=== PATIENT | male | born 1940 | race Caucasian/White ===

== ENCOUNTER 2016-09-27 23:58 | Emergency (ER) | payer MEDICARE, OTHER ==
[2016-09-27 20:12] LABS: BASOPHILS 0.9 %; BASOPHILS ABSOLUTE 0.05 10/3/uL (0.0-0.16); EOSINOPHILS 2.1 %; EOSINOPHILS ABSOLUTE 0.12 10/3/uL (0.0-0.53); ER CBC TAT 0 Hrs 03 Mins; HEMATOCRIT 37.3 % (40.0-51.0); HEMOGLOBIN 13.1 g/dL (13.6-17.8); IMMATURE GRANULOCYTES 0.2 %; IMMATURE GRANULOCYTES ABSOLUTE 0.01 10/3/uL (0.0-0.11); LYMPHOCYTES ABSOLUTE 1.22 10/3/uL (0.67-4.30); MANUAL DIFF NO %; MEAN CORPUS HGB CONC 35.1 g/dL (32.0-36.0); MEAN CORPUSCULAR HEMOGLOB 35.2 pg (26.0-34.0); MEAN CORPUSCULAR VOLUME 100.3 fL (80-100); MEAN PLATELET VOLUME 10.6 fL (9.2-13.0); MONOCYTES 10.3 %; NEUTROPHILS 65.5 %; PLATELET COUNT 180 10/3/uL (150-400); RBC DISTRIBUTION WIDTH 16.1 % (12.0-16.0); RED CELL COUNT 3.72 10/6/uL (4.7-6.1); WHITE BLOOD CELLS 5.8 10/3/uL (4.5-10.5)
[2016-09-27 20:21] LABS: INTERNATIONAL NORMAL RATI 1.3 UNITS (-)
[2016-09-27 20:22] LABS: PARTIAL THROMBO TIME 34.3 SEC (22.5-37.2)
[2016-09-27 20:30] LABS: BUN (BLOOD UREA NITROGEN) 10 MG/DL (6-23); CHEST PAIN PROFILE TAT 0 Hrs 21 Mins; CHLORIDE, SERUM 102 MMOL/L (96-112); CO2 (CARBON DIOXIDE) 28 MMOL/L (24-34); CREATININE 0.74 MG/DL (0.70-1.30); GFR AFRICAN AMERICAN 105 ML/MIN (>=60); GFR NON AFRICAN AMERICAN 91 ML/MIN (>=60); POTASSIUM, SERUM 3.9 MMOL/L (3.5-5.3); SODIUM, SERUM 138 MMOL/L (135-148); TROPONIN I <0.02 NG/ML (<0.05)
[2016-09-27 20:34] LABS: GLUCOSE, SERUM 90 MG/DL (60-99)
[~2016-09-27 23:58] MED LIST: ACT300 PO; ALTA2.5 PO; ALTA5 PO; ASA5GR PO; ASACOL PO; CALTRA600D PO; DURICEFSUS PO; IMOD PO; LOP25 PO; MOBIC7.5 PO; PLAVIX PO; PRAVACHOL40 MG PO; VITAMIN D31000 UNIT PO
== END 2016-09-28 00:20 | disposition home or self-care (01) ==
LOC: ER 23:58
PROVIDERS: Emergency Medicine
DX: K74.60 Unspecified cirrhosis of liver (principal); I10 Essential (primary) hypertension; Z87.891 Personal history of nicotine dependence; Z95.5 Presence of coronary angioplasty implant and graft; Z88.5 Allergy status to narcotic agent; Z79.82 Long term (current) use of aspirin; Z79.899 Other long term (current) drug therapy; R60.0 Localized edema
CPT/HCPCS: 71020; 80048; 83735; 83880; 84484; 85025; 85610; 85730; 93005; 99284; A9270-GY

== ENCOUNTER 2016-12-06 13:05 | Inpatient (IN) | payer MEDICARE, OTHER ==
[2016-12-04 18:45] LABS: BUN (BLOOD UREA NITROGEN) 18 MG/DL (6-23); CHLORIDE, SERUM 88 MMOL/L (96-112); CO2 (CARBON DIOXIDE) 29 MMOL/L (24-34); CREATININE 1.17 MG/DL (0.70-1.30); GFR AFRICAN AMERICAN 71 ML/MIN (>=60); GFR NON AFRICAN AMERICAN 61 ML/MIN (>=60); GLUCOSE, SERUM 93 MG/DL (60-99); POTASSIUM, SERUM 3.1 MMOL/L (3.5-5.3); SODIUM, SERUM 127 MMOL/L (135-148)
[2016-12-04 18:46] LABS: A/G RATIO 0.3 (0.7-1.9); ALBUMIN 1.6 G/DL (3.5-5.0); ALKALINE PHOSPHATASE 284 U/L (45-117); CALCIUM, SERUM 7.8 MG/DL (8.5-10.4); CHOL/HDL RATIO(NOT ORDER) 9.5 (0-5); CHOLESTEROL 219 MG/DL (< 200); GLOBULIN 5.3 G/DL (2.5-4.1); HDL CHOLESTEROL 23 MG/DL (> 39); LDL CHOLESTEROL 174 MG/DL (< 130); NON-HDL CHOLESTEROL 196 MG/DL (< 160); TOTAL BILIRUBIN 3.5 MG/DL (0-1.2); TOTAL PROTEIN 6.9 G/DL (6.0-8.5); TRIGLYCERIDE 114 MG/DL (< 150)
[2016-12-04 18:47] LABS: SGOT(AST) 103 U/L (5-40); SGPT(ALT) 56 U/L (5-65)
--- NOTE | ~2016-12-06 | HP ---
History And Physical [facility] [address] [place]. 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 He was put on HCC surveillance. In 08/2016, he noted some weight gain, mild confusion. He was started on Lasix and Aldactone. His bili had gone up to 4.6. His albumin was 1.8. Alkaline phosphatase was 492. He has been followed at [facility]. His Lasix and Aldactone were increased. He was seen at [facility] on 10/31/2016. At that time, his liver had some better compensation. He was on Aldactone 100 mg daily and Lasix 40 mg. He does have a history of small varices. Recent labs showed his BMP was acceptable with a creatinine of 0.63. For the last week or so, he has noted increased weight gain of about 30 pounds, some confusion, and some orthostatic dizziness. No black tarry stools. He is having one stool a day. PAST MEDICAL HISTORY: Crohn disease, doing well; GERD; coronary artery disease and stents. MEDICATIONS: Include cyproheptadine, ursodiol, loperamide, Plavix, ramipril, carvedilol, rifampin, Apriso, Neurontin, and Tums. SOCIAL HISTORY: He lives with his . REVIEW OF SYSTEMS: Otherwise negative. PHYSICAL EXAMINATION: VITAL SIGNS: Blood pressure 105/65, pulse was 86. GENERAL: Somewhat jaundiced. He is oriented. HEENT: Mild scleral icterus. Mouth and throat negative. NECK: No adenopathy. Trachea midline. CHEST: Clear to auscultation and percussion. CARDIAC: Normal. ABDOMEN: Probably some hnki-[id number] ascites. EXTREMITIES: He has 3 to 4+ pedal edema up to his upper thighs. He does have some mild asterixis. IMPRESSION: 1. 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 He has ascites. He has a history of grade 1 varices. 2. Crohn disease, stable. 3. History of coronary artery disease and stents, on Plavix. 4. Lower extremity edema. 5. Hypertension. PLAN: History And Physical [address] [address] NAME: MICHELLE CHAUHAN : 44 STATUS : ADM IN [facility]#: [id number] AGE: 76 ADM/REG DATE : 12/06/16 MR#: [id number] REPORT SERV DATE: 12/07/16 DICTATED BY: SCAR CASTELLON DATE: 12/06/16 REPORT STATUS : Draft TRANSCRIBED BY: MODL DATE: 12/06/16 1. Admit for IV albumin and Lasix. 2. We will have to hold on paracentesis because he is on the Plavix. 3. Control of encephalopathy. 4. Cardiology consult. 5. We will hold on his blood pressure medicine and I think he is getting somewhat on the hypotensive side related to his diuretics. We will consult Dr. Ray. MG/MODL Scar Castellon M.D. / [id number] CC: Crystal Holt M.D.
--- NOTE | ~2016-12-06 | CN ---
Consultation Report [facility] [address] [place]. [address] NAME: MICHELLE CLAROS : 44 STATUS : ADM IN PAT#: [id number] AGE: 76 ADM/REG DATE : 12/06/16 MR#: [id number] REPORT SERV DATE: 12/07/16 DICTATED BY: DATE: REPORT STATUS : Draft TRANSCRIBED BY: MODL DATE: 12/07/16 CONSULTATION DATE OF CONSULTATION: 12/07/2016 CONSULTATION REASON: Medical management. CHIEF COMPLAINT: Weight gain and some confusion. HISTORY OF PRESENT ILLNESS: The patient has a primary sclerosing cholangitis, decompensation, secondary cirrhosis. He has noted a 30 pounds weight gain in the last week. He has had some mild confusion. Currently, he is alert and oriented x4, however, he could not remember if had children or not, and he has four of them according to his . Mr. Claros has been on the liver transplant list at [facility] in [facility]. He is seen by Dr. Ivory Locke. His last appointment was on 10/31/2016. Yesterday, the patient was admitted under the care of Dr. Magdiel Pérez and he was placed on Lasix IV, as well as albumin, due to the presence of ascites. He does have a history of coronary artery disease with stent placement and he is currently taking Plavix. His retail account executive is Dr. Ray. He was consulted as well. If Dr. Ray agrees, we will hold the patient's Plavix for five days, so that he can have a paracentesis. PAST MEDICAL HISTORY: Crohn's disease, gastroesophageal reflux disease, coronary artery disease, primary sclerosing cholangitis, hyperlipidemia, lower GI bleed, diverticulosis, histoplasmosis of the lung, and osteoarthritis. PAST SURGICAL HISTORY: Left upper pneumonectomy performed by Dr. Frantz Ferrara, tonsillectomy, and adenoidectomy. SOCIAL HISTORY: The patient has remote history of tobacco use. He quit 25 years ago. Denies alcohol and illicit drug use. The patient is a retired banuelos and is and lives at home with his . FAMILY HISTORY: His mother had gastric cancer. His father had coronary artery disease and an OK. His brother has coronary artery disease. REVIEW OF SYSTEMS: A 10-point review of systems was performed and all pertinent positives were noted above otherwise negative. ALLERGIES: CODEINE. MEDICATIONS: Carvedilol, cyproheptadine, famotidine, gabapentin, mesalamine, Protonix, rifampin, Rifaximin, sucralfate, and ursodiol. Consultation Report [facility] [address] [place]. [address] NAME: MICHELLE CLAROS : 44 STATUS : ADM IN PAT#: [id number] AGE: 76 ADM/REG DATE : 12/06/16 MR#: [id number] REPORT SERV DATE: 12/07/16 DICTATED BY: DATE: REPORT STATUS : Draft TRANSCRIBED BY: MODL DATE: 12/07/16 PHYSICAL EXAMINATION: VITAL SIGNS: Blood pressure 132/61, heart rate 86, respirations 16, with an O2 saturation of 95% on room air, and temperature is 97.7. GENERAL: The patient is a pleasant gentleman, who is jaundiced with some scleral icterus. His responses are appropriate. HEENT: Scleral icterus. NECK: Thyroid within the limits. The trachea is midline. No adenopathy is noted. CHEST: Lungs are clear. Respirations are nonlabored. CARDIOVASCULAR: S1 and S2 is present. No murmurs, rubs, or gallops noted. ABDOMEN: Distended. Bowel sounds decreased. Ascites is noted. EXTREMITIES: He does have 2+ nonpitting edema in his lower extremities. ASSESSMENT: 1. Primary sclerosing cholangitis. 2. Cirrhosis, due to #1. 3. Crohn's disease. 4. Coronary artery disease, status post stent placement. 5. Lower extremity edema. 6. Hypertension. 7. Hyponatremia. 8. Hypokalemia. PLAN: The patient's blood pressure has been somewhat on the low side, due to diuresis, we will hold his home antihypertensives Altace. We will monitor the patient's electrolytes and replete accordingly. Thank you for the consultation. We will follow along with the patient and be of assistance in any way we can. NELY/MODL ado Keys NP / [id number] CC: Dion Lopez M.D. Sandhya Washington M.D. Shawn Ragsdale MD
--- NOTE | ~2016-12-06 | CN ---
Consultation Report [facility] [address] [place]. [address] NAME: MICHELLE CHAUHAN : 44 STATUS : [facility]#: [id number] AGE: 76 ADM/REG DATE : 12/06/16 MR#: [id number] REPORT SERV DATE: 12/07/16 DICTATED BY: LYLE RAY DATE: 12/07/16 REPORT STATUS : Draft TRANSCRIBED BY: MODL DATE: 12/07/16 DATE OF CONSULTATION: HISTORY OF PRESENT ILLNESS: The patient is a 76-year-old white male, who is status post remote stenting of the left anterior descending coronary artery and left circumflex coronary artery. He had a cardiac catheterization done on 04/29/2012 that showed patent stents in the proximal to mid LAD and proximal to mid obtuse marginal branch. Left ventricular ejection fraction was 60%. The patient also has a history of mild mitral regurgitation. He is admitted with cirrhosis of the liver and ascites. He is being considered for paracentesis. The patient has not been having any chest pain or significant dyspnea. His main complaint has been of increasing abdominal girth and pedal edema. The patient has been on carvedilol 12.5 mg a day, Plavix 75 mg a day, ramipril 12.5 mg a day, spironolactone 25 mg a day, and Protonix 40 mg a day. PAST MEDICAL HISTORY: Remarkable for coronary artery disease with previous multivessel stenting, hypertension, hyperlipidemia, and cirrhosis of the liver. SOCIAL HISTORY: The patient does not currently smoke. FAMILY HISTORY: Positive for coronary disease. REVIEW OF SYSTEMS: The patient denies cough, wheeze, sputum production, vomiting, diarrhea, or dysuria. PHYSICAL EXAMINATION: VITAL SIGNS: Blood pressure 115/69, heart rate 84 and regular, respirations 16 nonlabored. HEENT: Unremarkable. NECK: Shows no jugular venous distention with good carotid upstroke. CHEST: Clear. CARDIOVASCULAR: PMI is not displaced. S1 is normal. S2 is narrowly split. No gallop is present. ABDOMEN: Shows tense ascites. EXTREMITIES: Show 2+ ankle edema. SKIN: Warm and dry with no pallor or icterus. NEURO/PSYCH: The patient is oriented x3 with appropriate affect. LABORATORY DATA: Hematocrit 29.8, BUN 11, creatinine 0.63, potassium 3.6. IMPRESSION: 1. Stable coronary artery disease status post remote stenting of the left anterior descending coronary artery and left circumflex coronary artery. 2. Essential hypertension. 3. Hyperlipidemia. 4. Cirrhosis of the liver. Consultation Report [facility] [address] [place]. [address] NAME: MICHELLE CHAUHAN : 44 STATUS : ADM IN PAT#: [id number] AGE: 76 ADM/REG DATE : 12/06/16 MR#: [id number] REPORT SERV DATE: 12/07/16 DICTATED BY: LYLE RAY DATE: 12/07/16 REPORT STATUS : Draft TRANSCRIBED BY: CHANCE DATE: 12/07/16 RECOMMENDATION: 1. Okay to discontinue Plavix for paracentesis. 2. We will continue other cardiac medicines at the present doses. 3. We will be glad to see again on a p.r.n. basis. Thank you very much for this consultation. URI/CHANCE Lyle Ray M.D., F.A.C.C. / [id number] CC: Crystal Holt M.D.
--- NOTE | ~2016-12-06 | DS ---
Discharge Summary [facility] [address] [facility] [place]. [address] NAME: MICHELLE CHAUHAN : 44 STATUS : DIS IN PAT#: [id number] AGE: 76 ADM/REG DATE : 12/06/16 MR#: [id number] REPORT SERV DATE: 12/13/16 DICTATED BY: DION CASTELLON DATE: 12/11/16 REPORT STATUS : Draft TRANSCRIBED BY: MODL DATE: 12/11/16 ADMISSION DATE: 12/06/2016 DISCHARGE DATE: INTERIM DISCHARGE SUMMARY DIAGNOSES: 1. 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 2. Crohn's disease. Stable. 3. History of coronary artery disease and stents, on Plavix, stable. CASE HISTORY: This patient has a history of cirrhosis secondary to PSC. He is on HCC surveillance. He has been also followed at [facility]. In August 2016, he noted some weight gain and confusion. He was started on Aldactone and Lasix. He has had a low albumin of 1.8. His Lasix and Aldactone were increased. He was last seen in [place] on 10/31/2016. He was treated with 100 mg of Aldactone a day and 40 mg of Lasix. History of small varices. Prior to admission, he noted some weight gain of about 30 pounds. Also some confusion. On exam, he has mild scleral icterus. Oriented. Abdomen showed a moderate amount of ascites, 3 to 4+ pedal edema up to his thighs. He does have a significant history of a left pneumonectomy, tonsillectomy, and adenoidectomy. He is not smoking. HOSPITAL COURSE AND ASSESSMENT: When the patient was admitted, he was on Altace. He has felt that had been affecting his renal blood flow and dropping his blood pressure. He was treated with SPA followed by Lasix. He has had significant diuresis of his lower extremity edema. Because of his Plavix use, we had to wait 4 to 5 days for his paracentesis. Scheduled for 12/11/2016. His alkaline phosphatase has dropped to 155. His bilirubin has gone from 3.5 to 5.2. His other liver enzymes are dry. His blood pressure has been in the 120 to 65 range. The patient was followed by the hospitalist service also. With the albumin and Lasix, his BUN and creatinine have remained stable. His ammonia level has been normal even though, he had some periods of confusion, which seemed to improve during the hospital stay. His INR went from 1.3 to 1.7. He is getting vitamin K. Last ammonia was 23. His medications at this point, include the Actigall 600 mg twice a day, Aldactone 50 mg daily, the Carafate 4 times a day, Coreg 6.25, Delzicol 400 mg 4 times a day, lactulose 30 mL 3 times a day, Lasix 60 mg b.i.d., Neurontin 100 mg at bedtime, Pepcid 40 mg a day, Periactin 4 mg 3 times daily, Protonix, rifampin for itching 300 mg daily, and Xifaxan 550 mg t.i.d. Paracentesis is pending at time of this summary. FINAL DISCHARGE DIAGNOSES #. 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 #. Hypertension, stable. #. History of coronary artery stents, Plavix. Discharge Summary [address] [address] NAME: MICHELLE CHAUHAN : 44 STATUS : DIS IN PAT#: [id number] AGE: 76 ADM/REG DATE : 12/06/16 MR#: [id number] REPORT SERV DATE: 12/13/16 DICTATED BY: DION CASTELLON DATE: 12/11/16 REPORT STATUS : Draft TRANSCRIBED BY: CHANCE DATE: 12/11/16 #. Crohn disease, stable. INTERIM SUMMARY: This in an addition to the previous note, dated 12/11/2016. The patient received vitamin K 5 mg IV. The INR is still 1.7. He is getting paracentesis on the morning of discharge. His peripheral edema and ascites have markedly diminished. His bilirubin did go up to 5.2. He may be vitamin K deficient related to his primary sclerosing cholangitis with decrease fat soluble vitamin absorption. He is also on intestinal decontamination with Xifaxan. DISCHARGE MEDICATIONS: Carvedilol 6.25 mg daily, Periactin 4 mg t.i.d., furosemide 40 mg twice a day, lactulose 30 mL daily, mesalamine 800 mg b.i.d., nortriptyline 10 mg h.s., Protonix 40 mg daily, Xifaxan 550 t.i.d., rifampin 300 mg daily, spironolactone 150 mg daily, Carafate 1 g four times a day, Actigall 600 mg twice a day. </PLAN/> The patient will have lab work in a week. Discussion will be made with [facility] about whether he is considered a transplant eligible because of his age of 76 and some other comorbid conditions. DICTATED BY: Crystal Holt/CHANCE Dion Castellon M.D. / [id number] CC: Crystal Holt M.D.
[2016-12-06 14:59] LABS: BASOPHILS 0.5 %; BASOPHILS ABSOLUTE 0.03 10/3/uL (0.0-0.16); EOSINOPHILS 1.6 %; HEMATOCRIT 29.8 % (40.0-51.0); HEMOGLOBIN 10.5 g/dL (13.6-17.8); IMMATURE GRANULOCYTES 0.2 %; IMMATURE GRANULOCYTES ABSOLUTE 0.01 10/3/uL (0.0-0.11); LYMPHOCYTES 22.6 %; MANUAL DIFF NO %; MEAN CORPUS HGB CONC 35.2 g/dL (32.0-36.0); MEAN CORPUSCULAR HEMOGLOB 33.9 pg (26.0-34.0); MEAN CORPUSCULAR VOLUME 96.1 fL (80-100); MEAN PLATELET VOLUME 9.7 fL (9.2-13.0); MONOCYTES ABSOLUTE 0.62 10/3/uL (0.21-1.20); NEUTROPHILS 65.1 %; NEUTROPHILS ABSOLUTE 4.04 10/3/uL (2.02-8.40); PLATELET COUNT 172 10/3/uL (150-400); RBC DISTRIBUTION WIDTH 14.6 % (12.0-16.0); WHITE BLOOD CELLS 6.2 10/3/uL (4.5-10.5)
[2016-12-06 15:07] LABS: INTERNATIONAL NORMAL RATI 1.3 UNITS (-); PROTIME (NOT ORD) 16.4 SEC (12.0-14.5)
[2016-12-06 15:16] LABS: A/G RATIO 0.3 (0.7-1.9); ALBUMIN 1.3 G/DL (3.5-5.0); CALCIUM, SERUM 7.9 MG/DL (8.5-10.4); CHLORIDE, SERUM 90 MMOL/L (96-112); CO2 (CARBON DIOXIDE) 29 MMOL/L (24-34); CREATININE 1.46 MG/DL (0.70-1.30); GFR AFRICAN AMERICAN 54 ML/MIN (>=60); GFR NON AFRICAN AMERICAN 47 ML/MIN (>=60); GLOBULIN 4.7 G/DL (2.5-4.1); SGOT(AST) 87 U/L (5-40); SGPT(ALT) 41 U/L (5-65); SODIUM, SERUM 127 MMOL/L (135-148)
[2016-12-06 15:17] LABS: ALKALINE PHOSPHATASE 258 U/L (45-117); BUN (BLOOD UREA NITROGEN) 29 MG/DL (6-23); GLUCOSE, SERUM 121 MG/DL (60-99); POTASSIUM, SERUM 3.9 MMOL/L (3.5-5.3); TOTAL BILIRUBIN 2.9 MG/DL (0-1.2)
[2016-12-06] MEDS ORDERED: ALTA2.5 PO (17:18)
[2016-12-06] MEDS ORDERED: SUCR PO (17:18)
[2016-12-06] MEDS ORDERED: PLAVIX PO (17:19)
[2016-12-06] MEDS ORDERED: COREG3 PO (17:19)
[2016-12-06] MEDS ORDERED: APRISO0.375 GM PO (17:20)
[2016-12-06] MEDS ORDERED: CYPROHEPTAD4 MG PO (17:21)
[2016-12-06] MEDS ORDERED: PEPCID40 MG PO (17:22)
[2016-12-06] MEDS ORDERED: RIFADIN 300 MG300 MG PO (17:22)
[2016-12-06] MEDS ORDERED: XIFAXAN550 MG PO (17:23)
[2016-12-06] MEDS ORDERED: URSO FORTE500 MG PO (17:24)
[2016-12-06] MEDS ORDERED: NEUR100 PO (17:24)
[2016-12-06] MEDS ORDERED: SPIR100 PO (17:24)
[2016-12-06] MEDS ORDERED: L40 PO (17:25)
[2016-12-06] MEDS ORDERED: CO Q-10100 MG PO (17:26)
[2016-12-06] MEDS ORDERED: VITAMIN B PO (17:26)
[2016-12-06] MEDS ORDERED: VITE PO (17:26)
[2016-12-06] MEDS ORDERED: [UNRECOGNIZED DRUG - OTHER] TOP (17:28)
[2016-12-07 09:13] LABS: BASOPHILS 0.4 %; BASOPHILS ABSOLUTE 0.02 10/3/uL (0.0-0.16); EOSINOPHILS 1.1 %; EOSINOPHILS ABSOLUTE 0.05 10/3/uL (0.0-0.53); HEMATOCRIT 30.4 % (40.0-51.0); HEMOGLOBIN 10.7 g/dL (13.6-17.8); IMMATURE GRANULOCYTES 0.2 %; IMMATURE GRANULOCYTES ABSOLUTE 0.01 10/3/uL (0.0-0.11); LYMPHOCYTES 19.9 %; LYMPHOCYTES ABSOLUTE 0.94 10/3/uL (0.67-4.30); MEAN CORPUS HGB CONC 35.2 g/dL (32.0-36.0); MEAN CORPUSCULAR HEMOGLOB 33.9 pg (26.0-34.0); MEAN CORPUSCULAR VOLUME 96.2 fL (80-100); MEAN PLATELET VOLUME 10.1 fL (9.2-13.0); MONOCYTES 9.7 %; MONOCYTES ABSOLUTE 0.46 10/3/uL (0.21-1.20); NEUTROPHILS 68.7 %; NEUTROPHILS ABSOLUTE 3.24 10/3/uL (2.02-8.40); PLATELET COUNT 135 10/3/uL (150-400); RBC DISTRIBUTION WIDTH 14.6 % (12.0-16.0); RED CELL COUNT 3.16 10/6/uL (4.7-6.1); WHITE BLOOD CELLS 4.7 10/3/uL (4.5-10.5)
[2016-12-07 09:14] LABS: MANUAL DIFF NO %
[2016-12-07 09:44] LABS: A/G RATIO 0.4 (0.7-1.9); ALBUMIN 1.7 G/DL (3.5-5.0); ALKALINE PHOSPHATASE 232 U/L (45-117); BUN (BLOOD UREA NITROGEN) 28 MG/DL (6-23); CALCIUM, SERUM 7.7 MG/DL (8.5-10.4); CHLORIDE, SERUM 91 MMOL/L (96-112); CO2 (CARBON DIOXIDE) 25 MMOL/L (24-34); CREATININE 1.11 MG/DL (0.70-1.30); GFR AFRICAN AMERICAN 75 ML/MIN (>=60); GFR NON AFRICAN AMERICAN 65 ML/MIN (>=60); GLOBULIN 4.7 G/DL (2.5-4.1); GLUCOSE, SERUM 89 MG/DL (60-99); POTASSIUM, SERUM 3.3 MMOL/L (3.5-5.3); SGOT(AST) 91 U/L (5-40); SGPT(ALT) 44 U/L (5-65); SODIUM, SERUM 125 MMOL/L (135-148); TOTAL PROTEIN 6.4 G/DL (6.0-8.5)
[2016-12-08 06:34] LABS: BASOPHILS 0.6 %; BASOPHILS ABSOLUTE 0.03 10/3/uL (0.0-0.16); EOSINOPHILS 2.9 %; EOSINOPHILS ABSOLUTE 0.14 10/3/uL (0.0-0.53); HEMATOCRIT 27.8 % (40.0-51.0); IMMATURE GRANULOCYTES 0.4 %; IMMATURE GRANULOCYTES ABSOLUTE 0.02 10/3/uL (0.0-0.11); LYMPHOCYTES 23.4 %; LYMPHOCYTES ABSOLUTE 1.15 10/3/uL (0.67-4.30); MEAN CORPUSCULAR HEMOGLOB 34.4 pg (26.0-34.0); MEAN CORPUSCULAR VOLUME 95.5 fL (80-100); MEAN PLATELET VOLUME 9.9 fL (9.2-13.0); MONOCYTES 13.8 %; MONOCYTES ABSOLUTE 0.68 10/3/uL (0.21-1.20); NEUTROPHILS 58.9 %; NEUTROPHILS ABSOLUTE 2.89 10/3/uL (2.02-8.40); PLATELET COUNT 159 10/3/uL (150-400); RBC DISTRIBUTION WIDTH 14.6 % (12.0-16.0); RED CELL COUNT 2.91 10/6/uL (4.7-6.1); WHITE BLOOD CELLS 4.9 10/3/uL (4.5-10.5)
[2016-12-08 06:38] LABS: MANUAL DIFF NO %
[2016-12-08 06:56] LABS: A/G RATIO 0.5 (0.7-1.9); ALBUMIN 1.8 G/DL (3.5-5.0); ALKALINE PHOSPHATASE 180 U/L (45-117); BUN (BLOOD UREA NITROGEN) 26 MG/DL (6-23); CALCIUM, SERUM 7.6 MG/DL (8.5-10.4); CHLORIDE, SERUM 92 MMOL/L (96-112); CO2 (CARBON DIOXIDE) 27 MMOL/L (24-34); CREATININE 1.06 MG/DL (0.70-1.30); GFR AFRICAN AMERICAN 80 ML/MIN (>=60); GFR NON AFRICAN AMERICAN 69 ML/MIN (>=60); GLOBULIN 3.8 G/DL (2.5-4.1); GLUCOSE, SERUM 86 MG/DL (60-99); POTASSIUM, SERUM 3.8 MMOL/L (3.5-5.3); SGOT(AST) 70 U/L (5-40); SGPT(ALT) 33 U/L (5-65); SODIUM, SERUM 128 MMOL/L (135-148); TOTAL BILIRUBIN 3.5 MG/DL (0-1.2); TOTAL PROTEIN 5.6 G/DL (6.0-8.5)
[2016-12-09 07:58] LABS: BASOPHILS 0.6 %; BASOPHILS ABSOLUTE 0.03 10/3/uL (0.0-0.16); EOSINOPHILS 1.3 %; EOSINOPHILS ABSOLUTE 0.06 10/3/uL (0.0-0.53); HEMATOCRIT 27.6 % (40.0-51.0); HEMOGLOBIN 9.8 g/dL (13.6-17.8); IMMATURE GRANULOCYTES 0.2 %; IMMATURE GRANULOCYTES ABSOLUTE 0.01 10/3/uL (0.0-0.11); LYMPHOCYTES 23.4 %; LYMPHOCYTES ABSOLUTE 1.11 10/3/uL (0.67-4.30); MEAN CORPUS HGB CONC 35.5 g/dL (32.0-36.0); MEAN CORPUSCULAR HEMOGLOB 33.7 pg (26.0-34.0); MEAN CORPUSCULAR VOLUME 94.8 fL (80-100); MONOCYTES 15.6 %; MONOCYTES ABSOLUTE 0.74 10/3/uL (0.21-1.20); NEUTROPHILS 58.9 %; NEUTROPHILS ABSOLUTE 2.79 10/3/uL (2.02-8.40); PLATELET COUNT 154 10/3/uL (150-400); RBC DISTRIBUTION WIDTH 14.6 % (12.0-16.0); RED CELL COUNT 2.91 10/6/uL (4.7-6.1); WHITE BLOOD CELLS 4.7 10/3/uL (4.5-10.5)
[2016-12-09 08:00] LABS: MANUAL DIFF NO %
[2016-12-09 08:02] LABS: ALKALINE PHOSPHATASE 177 U/L (45-117); CALCIUM, SERUM 7.8 MG/DL (8.5-10.4); CHLORIDE, SERUM 94 MMOL/L (96-112); CO2 (CARBON DIOXIDE) 26 MMOL/L (24-34); CREATININE 0.91 MG/DL (0.70-1.30); GFR AFRICAN AMERICAN 96 ML/MIN (>=60); GFR NON AFRICAN AMERICAN 83 ML/MIN (>=60); GLUCOSE, SERUM 92 MG/DL (60-99); POTASSIUM, SERUM 3.6 MMOL/L (3.5-5.3); SGOT(AST) 67 U/L (5-40); SGPT(ALT) 32 U/L (5-65); SODIUM, SERUM 128 MMOL/L (135-148); TOTAL PROTEIN 5.8 G/DL (6.0-8.5)
[2016-12-09 08:03] LABS: A/G RATIO 0.7 (0.7-1.9); ALBUMIN 2.3 G/DL (3.5-5.0); BUN (BLOOD UREA NITROGEN) 18 MG/DL (6-23); GLOBULIN 3.5 G/DL (2.5-4.1); TOTAL BILIRUBIN 4.1 MG/DL (0-1.2)
[2016-12-09 13:00] LABS: CHOLESTEROL 122 MG/DL (< 200); HDL CHOLESTEROL 7 MG/DL (> 39); TRIGLYCERIDE 105 MG/DL (< 150)
[2016-12-10 05:20] LABS: A/G RATIO 0.7 (0.7-1.9); ALBUMIN 2.3 G/DL (3.5-5.0); CHLORIDE, SERUM 92 MMOL/L (96-112); CO2 (CARBON DIOXIDE) 29 MMOL/L (24-34); CREATININE 0.81 MG/DL (0.70-1.30); GFR AFRICAN AMERICAN 101 ML/MIN (>=60); GFR NON AFRICAN AMERICAN 88 ML/MIN (>=60); GLOBULIN 3.3 G/DL (2.5-4.1); GLUCOSE, SERUM 93 MG/DL (60-99); SGOT(AST) 53 U/L (5-40); SGPT(ALT) 27 U/L (5-65); SODIUM, SERUM 131 MMOL/L (135-148); TOTAL BILIRUBIN 4.4 MG/DL (0-1.2); TOTAL PROTEIN 5.6 G/DL (6.0-8.5)
[2016-12-10 05:24] LABS: ALKALINE PHOSPHATASE 144 U/L (45-117); BUN (BLOOD UREA NITROGEN) 13 MG/DL (6-23); POTASSIUM, SERUM 2.9 MMOL/L (3.5-5.3)
[2016-12-11 05:58] LABS: BASOPHILS 0.8 %; BASOPHILS ABSOLUTE 0.04 10/3/uL (0.0-0.16); HEMATOCRIT 27.1 % (40.0-51.0); HEMOGLOBIN 9.5 g/dL (13.6-17.8); LYMPHOCYTES 30.1 %; LYMPHOCYTES ABSOLUTE 1.54 10/3/uL (0.67-4.30); MEAN CORPUS HGB CONC 35.1 g/dL (32.0-36.0); MEAN CORPUSCULAR HEMOGLOB 34.1 pg (26.0-34.0); MEAN CORPUSCULAR VOLUME 97.1 fL (80-100); MEAN PLATELET VOLUME 10.1 fL (9.2-13.0); MONOCYTES 13.9 %; MONOCYTES ABSOLUTE 0.71 10/3/uL (0.21-1.20); NEUTROPHILS 53.2 %; NEUTROPHILS ABSOLUTE 2.73 10/3/uL (2.02-8.40); PLATELET COUNT 159 10/3/uL (150-400); RBC DISTRIBUTION WIDTH 15.3 % (12.0-16.0); RED CELL COUNT 2.79 10/6/uL (4.7-6.1); WHITE BLOOD CELLS 5.1 10/3/uL (4.5-10.5)
[2016-12-11 05:59] LABS: MANUAL DIFF NO %
[2016-12-11 06:06] LABS: INTERNATIONAL NORMAL RATI 1.7 UNITS (-); PARTIAL THROMBO TIME 43.6 SEC (22.5-37.2)
[2016-12-11 06:07] LABS: PROTIME (NOT ORD) 19.5 SEC (12.0-14.5)
[2016-12-11 06:15] LABS: ALKALINE PHOSPHATASE 155 U/L (45-117); BUN (BLOOD UREA NITROGEN) 10 MG/DL (6-23); CO2 (CARBON DIOXIDE) 27 MMOL/L (24-34); CREATININE 0.95 MG/DL (0.70-1.30); GFR AFRICAN AMERICAN 91 ML/MIN (>=60); GFR NON AFRICAN AMERICAN 79 ML/MIN (>=60); GLUCOSE, SERUM 101 MG/DL (60-99); SGOT(AST) 56 U/L (5-40); SGPT(ALT) 34 U/L (5-65); SODIUM, SERUM 136 MMOL/L (135-148); TOTAL PROTEIN 6.1 G/DL (6.0-8.5)
[2016-12-11 06:16] LABS: A/G RATIO 0.8 (0.7-1.9); ALBUMIN 2.8 G/DL (3.5-5.0); CHLORIDE, SERUM 103 MMOL/L (96-112); GLOBULIN 3.3 G/DL (2.5-4.1); TOTAL BILIRUBIN 5.2 MG/DL (0-1.2)
[2016-12-12 05:39] LABS: INTERNATIONAL NORMAL RATI 1.7 UNITS (-); PARTIAL THROMBO TIME 42.8 SEC (22.5-37.2)
[2016-12-12 05:52] LABS: BUN (BLOOD UREA NITROGEN) 8 MG/DL (6-23); CALCIUM, SERUM 8.1 MG/DL (8.5-10.4); CHLORIDE, SERUM 105 MMOL/L (96-112); CO2 (CARBON DIOXIDE) 25 MMOL/L (24-34); CREATININE 0.77 MG/DL (0.70-1.30); GFR AFRICAN AMERICAN 104 ML/MIN (>=60); GFR NON AFRICAN AMERICAN 89 ML/MIN (>=60); GLUCOSE, SERUM 114 MG/DL (60-99); IRON BINDING CAPACITY 141 MCG/DL (250-450); IRON, SERUM 41 MCG/DL (35-150); POTASSIUM, SERUM 3.5 MMOL/L (3.5-5.3); SODIUM, SERUM 138 MMOL/L (135-148)
[2016-12-12] MEDS ORDERED: SPIRO50 PO (08:20)
[2016-12-12] MEDS ORDERED: ENULOSE PO (08:20)
[2016-12-12] MEDS ORDERED: NOR10 PO (08:21)
[2016-12-12] MEDS ORDERED: CYPROHEPTAD4 MG PO (08:22)
[2016-12-12 09:28] LABS: ALBUMIN 3.1 G/DL (3.5-5.0); TOTAL PROTEIN 6.1 G/DL (6.0-8.5)
[2016-12-12 11:49] LABS: BD FL LYMPH (NOT ORD) 48 %; BF BASO (NOT OF) 1 %; BF LARGE MONONUCLEAR 50 %; BODY FLUID EOS (NOT ORD) 0 %; BODY FLUID SEG (NOT ORD) 1 %
[2016-12-12 13:30] LABS: BD FL SOURCE (NOT ORD) PERITONEAL
[2016-12-12 14:37] LABS: BF TOTAL CELL CT (NOT ORD 677 /MM3; BODY FLUID RBC (NOT ORD) 548 /MM3
== END 2016-12-12 14:59 | disposition home or self-care (01) | DRG 432 ==
LOC: 5SO 13:05
PROVIDERS: Internal Medicine; Internal Medicine Gastroenterology; Nurse Practitioner Acute Care
PROC: 0W9G3ZZ Drainage of Peritoneal Cavity, Percutaneous Approach (ICD-10-PCS; principal; 2016-12-12)
DX: K74.3 Primary biliary cirrhosis (principal); G93.41 Metabolic encephalopathy; R18.8 Other ascites; K50.90 Crohn's disease, unspecified, without complications; E87.1 Hypo-osmolality and hyponatremia; I10 Essential (primary) hypertension; K21.9 Gastro-esophageal reflux disease without esophagitis; I25.10 Atherosclerotic heart disease of native coronary artery without angina pectoris; E87.6 Hypokalemia; E78.5 Hyperlipidemia, unspecified; Z79.02 Long term (current) use of antithrombotics/antiplatelets; Z95.5 Presence of coronary angioplasty implant and graft; Z87.891 Personal history of nicotine dependence; Z80.0 Family history of malignant neoplasm of digestive organs; Z82.49 Family history of ischemic heart disease and other diseases of the circulatory system
CPT/HCPCS: 49083; 76700; 80048; 80053; 80061; 82040; 82140; 82465; 82962; 83540; 83550; 83718; 83735; 84132; 84155; 84443; 84478; 85025; 85049; 85610; 85730; 87070; 87205; 88112; 88305; 89051; A9270-GY; J2405; J3430; P9047